=== PATIENT | female | born 1970 | race African-American/Black ===

== ENCOUNTER → 2016-03-19 | Outpatient (CLI) | payer OTHER, MEDICAID ==
--- NOTE | 2016-03-19 19:03 | DX ---
Right hand 3 views History: Pain. Osteoarthritis. Polyarthralgia. M 25.50, M 79.643, fifth metacarpal pain. Comparison: None. Findings: No acute fracture or dislocation identified. Mild interphalangeal joint space narrowing mos t prominent in the third through fifth proximal and distal interphalangeal joints with mild associate d sclerosis. No significant osteophytes. No significant degenerative changes of the intercarpal joint s, first carpometacarpal joint, or metacarpal phalangeal joints. No destructive osseous lesions. No e vidence of erosions, subluxation or periarticular osteoporosis. No evidence of metacarpal fracture. IMPRESSION: Mild osteoarthritis right hand predominantly interphalangeal joints.
--- NOTE | 2016-03-19 19:04 | DX ---
Left hand 3 views History: Pain. Osteoarthritis. Polyarthralgia. M 25.50, M 79.643, fifth metacarpal pain. Comparison: None. Findings: No acute fracture or dislocation identified. Mild interphalangeal joint space narrowing mos t prominent in the third through fifth proximal and distal interphalangeal joints with mild associate d sclerosis. No significant osteophytes. No significant degenerative changes of the intercarpal joint s, first carpometacarpal joint, or metacarpal phalangeal joints. No destructive osseous lesions. No e vidence of erosions, subluxation or periarticular osteoporosis. IMPRESSION: Mild osteoarthritis left hand predominantly interphalangeal joints.
--- NOTE | 2016-03-19 19:58 | DX ---
Lumbar Spine, 4 Views INDICATION: Polyarthralgia. Long-standing hip and buttock pain. FINDINGS: There is moderate facet arthropathy at L5-S1 bilaterally. There is no compression deformity . The disc height loss is mild at L5-S1. It is otherwise well preserved throughout the rest of the mayte mbar levels. Patient has 5 lumbar type vertebrae. There is no significant osteophyte formation. SI joints are symmetric. IMPRESSION: Facet arthropathy at L5-S1 bilaterally.
== END ==
LOC: BRMIMAGING 10:25
PROVIDERS: ATTEND Internal Medicine
DX: M46.97 Unspecified inflammatory spondylopathy, lumbosacral region (principal); M19.042 Primary osteoarthritis, left hand; M19.041 Primary osteoarthritis, right hand
CPT/HCPCS: 72100-PO; 73130-PO